=== PATIENT | female | born 1965 | race Caucasian/White ===

== ENCOUNTER 2018-01-18 09:52 | Day surgery (SDC) | payer OTHER ==
[~2018-01-18] VITALS: Ht 165.1 cm; Wt 99.3 kg
[~2018-01-18 09:52] MED LIST: ASPI81CH PO; FLUO10 PO; LOSA50 PO; METF500C PO
== END 2018-01-18 22:52 | disposition home or self-care (01) ==
LOC: ORSCMMR 09:52 → ORD 11:00 → ORSCMMR 11:00
PROVIDERS: Internal Medicine Gastroenterology
PROC: 0DBM8ZX Excision of Descending Colon, Via Natural or Artificial Opening Endoscopic, Diagnostic (ICD-10-PCS; principal; 2018-01-18 11:00)
DX: Z12.11 Encounter for screening for malignant neoplasm of colon (principal); D12.4 Benign neoplasm of descending colon; K63.89 Other specified diseases of intestine; Z80.0 Family history of malignant neoplasm of digestive organs; E11.9 Type 2 diabetes mellitus without complications; I10 Essential (primary) hypertension; F32.9 Major depressive disorder, single episode, unspecified; F17.210 Nicotine dependence, cigarettes, uncomplicated; E66.9 Obesity, unspecified; Z68.36 Body mass index [BMI] 36.0-36.9, adult; Z79.84 Long term (current) use of oral hypoglycemic drugs; Z79.899 Other long term (current) drug therapy
CPT/HCPCS: 82947; 88305; J7120

== ENCOUNTER → 2018-05-10 | Outpatient (CLI) | payer OTHER ==
[2018-05-10 15:22] LABS: Microalb/Creat Ratio UR, Rand Unable to Calculate mg/g (0.000-30.000); Microalbumin, Random Urine <5.000 mg/L (0.000-20.000)
== END | disposition home or self-care (01) ==
LOC: LAB SHORT 11:37 → LAB 11:37
PROVIDERS: Nurse Practitioner Family
DX: E11.9 Type 2 diabetes mellitus without complications (principal)
CPT/HCPCS: 82043; 82570

== ENCOUNTER 2018-06-22 17:02 | Emergency (ER) | payer OTHER ==
[~2018-06-22] VITALS: Ht 162.6 cm; Wt 99.3 kg
[2018-06-22] MEDS ORDERED: Zithromax250 MG PO (18:52)
[2018-06-22] MEDS ORDERED: KETO10 PO (18:52)
== END 2018-06-22 19:06 | disposition home or self-care (01) ==
LOC: ER 17:02
DX: J18.9 Pneumonia, unspecified organism (principal); B35.6 Tinea cruris; Z79.899 Other long term (current) drug therapy; Z79.84 Long term (current) use of oral hypoglycemic drugs; Z79.82 Long term (current) use of aspirin; F17.210 Nicotine dependence, cigarettes, uncomplicated
CPT/HCPCS: 99283

== ENCOUNTER 2019-04-23 00:05 | Emergency (ER) | payer OTHER ==
[~2019-04-23] VITALS: Ht 162.6 cm; Wt 99.8 kg
[~2019-04-23 00:05] MED LIST changes: +KETO10 PO; +Zithromax250 MG PO
[2019-04-23] MEDS ORDERED: Prednisone20 MG PO (01:48)
== END 2019-04-23 02:07 | disposition home or self-care (01) ==
LOC: ER 00:05
DX: R06.02 Shortness of breath (principal); Z79.899 Other long term (current) drug therapy; Z79.84 Long term (current) use of oral hypoglycemic drugs; Z79.82 Long term (current) use of aspirin; R05 Cough; F17.200 Nicotine dependence, unspecified, uncomplicated
CPT/HCPCS: 71046; 99283-25; J7512

== ENCOUNTER → 2019-07-08 | Outpatient (CLI) | payer OTHER ==
[~2019-07-08] MED LIST changes: +Prednisone20 MG PO
[2019-07-08 13:12] LABS: Microalb/Creat Ratio UR, Rand 3.175 mg/g (0.000-30.000); Microalbumin, Random Urine 5.43 mg/L (0.000-20.000)
== END | disposition home or self-care (01) ==
LOC: LAB SHORT 10:50 → LAB 10:50
PROVIDERS: Nurse Practitioner Family
DX: E11.9 Type 2 diabetes mellitus without complications (principal)
CPT/HCPCS: 82043; 82570

== ENCOUNTER → 2021-10-06 | Outpatient (CLI) | payer OTHER | LOC: LAB SHORT 13:45 | DX: E11.3299 Type 2 diabetes mellitus with mild nonproliferative diabetic retinopathy without macular edema, unspecified eye (principal) | CPT/HCPCS: 82043 ==

== ENCOUNTER → 2023-06-14 | Outpatient (CLI) | payer OTHER ==
[2023-06-14 09:44] LABS: Source, Urine Clean Catch
[2023-06-14 10:03] LABS: Bacteria Many /hpf; Red Blood Cells, Urine 0-2 /hpf (0-2); Squamous Epithelial Cells Few /hpf (Few)
== END | disposition home or self-care (01) ==
LOC: LAB SHORT 09:41
PROVIDERS: Chiropractor
DX: R82.90 Unspecified abnormal findings in urine (principal)
CPT/HCPCS: 81015; 87077; 87086; 87186

== ENCOUNTER 2023-12-16 08:47 | Emergency (ER) | payer OTHER ==
[~2023-12-16] VITALS: Ht 162.6 cm; Wt 99.8 kg
[2023-12-16 09:42] VITALS: BP 142/78
[2023-12-16] MEDS ORDERED: CEPH500 PO (11:52)
== END 2023-12-16 12:14 | disposition home or self-care (01) ==
LOC: ER 08:47
DX: L02.411 Cutaneous abscess of right axilla (principal); I10 Essential (primary) hypertension; E11.9 Type 2 diabetes mellitus without complications; F17.200 Nicotine dependence, unspecified, uncomplicated
CPT/HCPCS: 10060; 99283-25

== ENCOUNTER 2024-12-19 06:31 | Emergency (ER) | payer OTHER ==
[~2024-12-19] VITALS: Ht 162.6 cm; Wt 96.2 kg
[~2024-12-19 06:31] MED LIST changes: +CEPH500 PO
[2024-12-19 06:43] VITALS: BP 155/92
[2024-12-19] MEDS ORDERED: BENADRYL25 MG PO (07:11)
[2024-12-19] MEDS ORDERED: CEPH500 PO (07:11)
== END 2024-12-19 07:39 | disposition home or self-care (01) ==
LOC: ER 06:31
DX: T63.441A Toxic effect of venom of bees, accidental (unintentional), initial encounter (principal); L03.116 Cellulitis of left lower limb; I10 Essential (primary) hypertension; E11.9 Type 2 diabetes mellitus without complications; F17.210 Nicotine dependence, cigarettes, uncomplicated; Z90.710 Acquired absence of both cervix and uterus; X58.XXXA Exposure to other specified factors, initial encounter; Z91.030 Bee allergy status; Z79.84 Long term (current) use of oral hypoglycemic drugs; Z79.82 Long term (current) use of aspirin; Z79.2 Long term (current) use of antibiotics
CPT/HCPCS: 99282; A9270

== ENCOUNTER 2025-03-12 18:48 | Emergency (ER) | payer OTHER ==
[~2025-03-12] VITALS: Ht 162.6 cm; Wt 99.8 kg
[~2025-03-12 18:48] MED LIST changes: +BENADRYL25 MG PO
[2025-03-12] MEDS ORDERED: Ketorolac Tromethamine 30mg Vial IM ONE (19:15)
[2025-03-12] MEDS ORDERED: ACET500 PO (20:05)
[2025-03-12 20:12] VITALS: BP 153/70
== END 2025-03-12 20:13 | disposition home or self-care (01) ==
LOC: ER 18:48
DX: M25.551 Pain in right hip (principal); Z91.030 Bee allergy status; Z79.2 Long term (current) use of antibiotics; Z79.899 Other long term (current) drug therapy; I10 Essential (primary) hypertension; E11.9 Type 2 diabetes mellitus without complications; F17.200 Nicotine dependence, unspecified, uncomplicated; Z79.84 Long term (current) use of oral hypoglycemic drugs
CPT/HCPCS: 73502; 96372; 99283-25; J1885